=== PATIENT | male | born 1960 | race Two or more races ===

== ENCOUNTER 2021-05-28 05:35 | Day surgery (SDC) | payer OTHER ==
[2021-05-28] MEDS ORDERED: PERCOCET 5-3251 EACH PO (08:38)
[2021-05-28] MEDS ORDERED: RECTICARE30 GM TOP (08:38)
== END 2021-05-28 14:25 | disposition home or self-care (01) ==
LOC: CIR.AMB 05:35 → SURH 10:30 → CIR.AMB 10:30 → EDSTATUS 10:30 → CIR.AMB 12:00
PROVIDERS: ATTEND Surgery
DX: C21.0 Malignant neoplasm of anus, unspecified (principal); C20 Malignant neoplasm of rectum

== ENCOUNTER 2021-06-25 05:27 | Day surgery (SDC) | payer OTHER ==
[~2021-06-25 05:27] MED LIST: PERCOCET 5-3251 EACH PO; RECTICARE30 GM TOP
[2021-06-25] MEDS ORDERED: ULTRACET PO (08:16)
== END 2021-06-25 10:00 | disposition home or self-care (01) ==
LOC: CIR.AMB 05:27
PROVIDERS: ATTEND Surgery
DX: C21.1 Malignant neoplasm of anal canal (principal); F12.90 Cannabis use, unspecified, uncomplicated; F41.9 Anxiety disorder, unspecified

== ENCOUNTER 2022-09-16 08:16 | Outpatient (CLI) | payer OTHER ==
[~2022-09-16 08:16] MED LIST changes: +ULTRACET PO
== END 2022-09-16 08:23 | disposition home or self-care (01) ==
LOC: LAB 08:16
PROVIDERS: ATTEND Surgery
DX: Z03.818 Encounter for observation for suspected exposure to other biological agents ruled out (principal); I10 Essential (primary) hypertension; R10.9 Unspecified abdominal pain

== ENCOUNTER 2022-10-03 08:01 | Day surgery (SDC) | payer OTHER ==
[2022-10-03] MEDS ORDERED: TRAMADOL HCL50 MG PO (11:18)
[2022-10-03] MEDS ORDERED: MIRALAX17 GM PO (11:18)
[2022-10-03] MEDS ORDERED: TYLENOL ARTHRI650 MG PO (11:18)
[2022-10-03] MEDS ORDERED: KETO10TA2 PO (11:18)
== END 2022-10-03 16:10 | disposition home or self-care (01) ==
LOC: CIR.AMB 08:01
PROVIDERS: ATTEND Surgery
DX: K40.20 Bilateral inguinal hernia, without obstruction or gangrene, not specified as recurrent (principal); Z20.822 Contact with and (suspected) exposure to COVID-19
CPT/HCPCS: 49507; C1781